=== PATIENT | male | born 1945 | race Caucasian/White ===

== ENCOUNTER → 2022-12-11 | Outpatient (CLI) | payer OTHER ==
[~2022-12-11] MED LIST: ASPI-1443 PO; CLOP75TA32 PO; FURO20TA4 PO; METO-408 PO
== END | disposition home or self-care (01) ==
LOC: SHCH 08:08
PROVIDERS: ATTEND Student in an Organized Health Care Education/Training Program
DX: I50.9 Heart failure, unspecified (principal)
CPT/HCPCS: 93306

== ENCOUNTER → 2023-01-27 | Outpatient (CLI) | payer OTHER ==
[~2023-01-27] MED LIST changes: +IOHEXOL 350 MG/ML 100ML INFUS..BTL IV ONE; +METOPROLOL TARTRATE 1 MG/ML 5ML VIAL IV ONE
== END | disposition home or self-care (01) ==
LOC: RAH 10:00
PROVIDERS: ATTEND Student in an Organized Health Care Education/Training Program
DX: I51.7 Cardiomegaly (principal); M47.815 Spondylosis without myelopathy or radiculopathy, thoracolumbar region; Z95.1 Presence of aortocoronary bypass graft
CPT/HCPCS: 75574; J3490; Q9967

== ENCOUNTER 2023-02-28 18:02 | Emergency (ER) | payer OTHER ==
[~2023-02-28] VITALS: Ht 177.8 cm; Wt 98.9 kg
[~2023-02-28 18:02] MED LIST changes: -IOHEXOL 350 MG/ML 100ML INFUS..BTL IV ONE; -METOPROLOL TARTRATE 1 MG/ML 5ML VIAL IV ONE
[2023-02-28 19:09] LABS: CREATININE 1.4 mg/dL (0.5-1.5); POTASSIUM 3.5 mmol/L (3.5-5.1)
[2023-02-28 19:10] LABS: BASOPHILS # (AUTO) 0.02 K/uL (0.00-0.20); BASOPHILS % (AUTO) 0.3 % (0.0-5.0); EOSINOPHILS # (AUTO) 0.15 K/uL (0.00-0.70); EOSINOPHILS % (AUTO) 2.2 % (0.0-8.0); HEMATOCRIT 44.3 % (42-54); IMMATURE GRANULOCYTE ABSOLUTE 0.02 K/uL (0-1); LYMPHOCYTES # (AUTO) 1.4 K/uL (1.0-4.8); LYMPHOCYTES % (AUTO) 21.2 % (21.0-51.0); MEAN CORPUSCULAR HEMOGLOBIN 30.5 pg (27.0-33.0); MEAN CORPUSCULAR HGB CONC 32.7 g/dL (32.0-36.0); MEAN CORPUSCULAR VOLUME 93.1 fL (79-99); MONOCYTES # (AUTO) 0.2 K/uL (0.1-1.0); MONOCYTES % (AUTO) 3.4 % (3.0-13.0); NEUTROPHILS # (AUTO) 4.9 K/uL (1.8-7.7); NEUTROPHILS % (AUTO) 72.6 % (40.0-77.0); PLATELET COUNT (AUTO) 216 K/uL (130-400); RED BLOOD CELL COUNT(AUTO) 4.76 MIL/uL (4.50-6.20); RED CELL DISTRIBUTION WIDTH 14.4 % (11.0-15.5); WHITE BLOOD COUNT (AUTO) 6.8 K/uL (4.8-10.8)
[2023-02-28 19:18] VITALS: BP 133/69; O2SAT 97
[2023-02-28 19:18] LABS: ALBUMIN 3.3 g/dL (3.5-5.0); BILIRUBIN,TOTAL 0.5 mg/dL (0.2-1.0)
[2023-02-28] MEDS ORDERED: ALBUTEROL 0.083% 2.5 MG/3 ML INH IH ONE ×2 (20:28→20:30)
[2023-02-28 20:31] VITALS: PULSE 65; RESP 18
[2023-02-28] MEDS ORDERED: ALBU90AE2 IH (21:42)
== END 2023-02-28 21:55 | disposition home or self-care (01) ==
LOC: EDH 18:02
DX: J45.909 Unspecified asthma, uncomplicated (principal); I25.10 Atherosclerotic heart disease of native coronary artery without angina pectoris; I10 Essential (primary) hypertension; E78.00 Pure hypercholesterolemia, unspecified; Z79.82 Long term (current) use of aspirin; Z79.899 Other long term (current) drug therapy; Z95.1 Presence of aortocoronary bypass graft; Z98.890 Other specified postprocedural states
CPT/HCPCS: 36415; 71045; 80053; 83880; 84484; 85025; 93005; 94640

== ENCOUNTER 2023-03-08 11:18 | Emergency (ER) | payer OTHER ==
[~2023-03-08] VITALS: Ht 177.8 cm; Wt 98.1 kg
[~2023-03-08 11:18] MED LIST changes: +ALBU90AE2 IH
[2023-03-08 11:52] LABS: BASOPHILS # (AUTO) 0.03 K/uL (0.00-0.20); BASOPHILS % (AUTO) 0.5 % (0.0-5.0); EOSINOPHILS # (AUTO) 0.19 K/uL (0.00-0.70); HEMATOCRIT 43.1 % (42-54); IMMATURE GRANULOCYTE ABSOLUTE 0.01 K/uL (0-1); LYMPHOCYTES # (AUTO) 1.4 K/uL (1.0-4.8); LYMPHOCYTES % (AUTO) 22.4 % (21.0-51.0); MEAN CORPUSCULAR HEMOGLOBIN 30.6 pg (27.0-33.0); MEAN CORPUSCULAR VOLUME 95.6 fL (79-99); MONOCYTES # (AUTO) 0.5 K/uL (0.1-1.0); MONOCYTES % (AUTO) 7.2 % (3.0-13.0); NEUTROPHILS # (AUTO) 4.2 K/uL (1.8-7.7); NEUTROPHILS % (AUTO) 66.7 % (40.0-77.0); PLATELET COUNT (AUTO) 186 K/uL (130-400); RED BLOOD CELL COUNT(AUTO) 4.51 MIL/uL (4.50-6.20); RED CELL DISTRIBUTION WIDTH 14.5 % (11.0-15.5); WHITE BLOOD COUNT (AUTO) 6.2 K/uL (4.8-10.8)
[2023-03-08 12:04] LABS: CREATININE 1.3 mg/dL (0.5-1.5); POTASSIUM 3.8 mmol/L (3.5-5.1)
[2023-03-08] MEDS ORDERED: METOCLOPRAMIDE 10 MG/2 ML VIAL IVP ONE (13:30)
[2023-03-08] MEDS ORDERED: LIDOCAINE HCL 2% VISCOUS 15 ML UDCUP PO ONE (13:30)
[2023-03-08] MEDS ORDERED: DICYCLOMINE HCL 10 MG/5 ML ML PO ONE (13:30)
[2023-03-08] MEDS ORDERED: FAMOTIDINE 20MG TAB PO ONE (13:30)
[2023-03-08] MEDS ORDERED: MAG/ALUM/SIMETH 30 ML UDCUP PO ONE (13:30)
[2023-03-08 13:37] LABS: ADD UA MICROSCOPIC YES; APPEARANCE,URINE CLEAR (CLEAR); BILIRUBIN,URINE NEGATIVE (NEGATIVE); COLOR,URINE LIGHT-YELLOW (YELLOW); GLUCOSE, URINE (UA) NEGATIVE (NEGATIVE); KETONES,URINE NEGATIVE (NEGATIVE); LEUKOCYTE ESTERASE ,URINE 75 Leu/uL (NEGATIVE); NITRATE,URINE NEGATIVE (NEGATIVE); OCCULT BLOOD,URINE NEGATIVE (NEGATIVE); PROTEIN,URINE NEGATIVE (NEGATIVE); UROBILINOGEN,URINE 0.2 mg/dL (0.2-1.0)
[2023-03-08 13:39] LABS: MUCUS,URINE RARE LPF (None Seen); RBC,URINE 0-1 /HPF (0-1)
[2023-03-08 14:42] VITALS: BP 115/73; PULSE 63; RESP 16; O2SAT 98
[2023-03-08] MEDS ORDERED: CEPH500B PO (14:43)
[2023-03-08] MEDS ORDERED: CEFTRIAXONE 2GM VIAL IVPB ONE (15:00)
[2023-03-11] MEDS ORDERED: POTA-200 PO (11:34)
[2023-03-11] MEDS ORDERED: FOLI1 PO (11:34)
[2023-03-11] MEDS ORDERED: THIA100T78 PO (11:34)
[2023-03-11] MEDS ORDERED: TADA20TA43 PO (11:34)
[2023-03-11] MEDS ORDERED: ROSU40TA21 PO (11:34)
== END 2023-03-08 15:22 | disposition home or self-care (01) ==
LOC: EDH 11:18
DX: N39.0 Urinary tract infection, site not specified (principal); E78.00 Pure hypercholesterolemia, unspecified; I10 Essential (primary) hypertension; I25.2 Old myocardial infarction; Z79.02 Long term (current) use of antithrombotics/antiplatelets; Z79.82 Long term (current) use of aspirin; Z79.899 Other long term (current) drug therapy; Z87.891 Personal history of nicotine dependence; Z95.1 Presence of aortocoronary bypass graft
CPT/HCPCS: 99285; 96365; 71045; 96375; 84484; 80048; 85025; 87088; 81001; 36415; 74018; 93005; J0696; J2765

== ENCOUNTER 2023-03-14 08:10 | Observation (INO) | payer OTHER ==
[2023-03-10 15:08] LABS: BASOPHILS # (AUTO) 0.02 K/uL (0.00-0.20); BASOPHILS % (AUTO) 0.3 % (0.0-5.0); EOSINOPHILS % (AUTO) 2.9 % (0.0-8.0); IMMATURE GRANULOCYTE ABSOLUTE 0.02 K/uL (0-1); LYMPHOCYTES # (AUTO) 1.3 K/uL (1.0-4.8); LYMPHOCYTES % (AUTO) 18.7 % (21.0-51.0); MEAN CORPUSCULAR HEMOGLOBIN 30.6 pg (27.0-33.0); MEAN CORPUSCULAR HGB CONC 32.2 g/dL (32.0-36.0); MEAN CORPUSCULAR VOLUME 94.9 fL (79-99); MONOCYTES # (AUTO) 0.5 K/uL (0.1-1.0); MONOCYTES % (AUTO) 6.5 % (3.0-13.0); NEUTROPHILS % (AUTO) 71.3 % (40.0-77.0); PLATELET COUNT (AUTO) 186 K/uL (130-400); RED BLOOD CELL COUNT(AUTO) 4.74 MIL/uL (4.50-6.20); RED CELL DISTRIBUTION WIDTH 14.3 % (11.0-15.5)
[2023-03-10 15:14] LABS: APPEARANCE,URINE CLEAR (CLEAR); BILIRUBIN,URINE NEGATIVE (NEGATIVE); COLOR,URINE COLORLESS (YELLOW); GLUCOSE, URINE (UA) NEGATIVE (NEGATIVE); KETONES,URINE NEGATIVE (NEGATIVE); LEUKOCYTE ESTERASE ,URINE 250 Leu/uL (NEGATIVE); NITRATE,URINE NEGATIVE (NEGATIVE); OCCULT BLOOD,URINE NEGATIVE (NEGATIVE); PROTEIN,URINE NEGATIVE (NEGATIVE); UROBILINOGEN,URINE 0.2 mg/dL (0.2-1.0)
[2023-03-10 15:16] LABS: CREATININE 1.4 mg/dL (0.5-1.5); POTASSIUM 3.7 mmol/L (3.5-5.1)
[2023-03-10 15:17] LABS: ADD UA MICROSCOPIC YES
[2023-03-10 15:18] LABS: INR 0.99 (0.85-1.15); PROTHROMBIN TIME 11.5 SEC (9.6-11.6)
[2023-03-10 15:20] LABS: PARTIAL THROMBOPLASTIN TIME 28.9 SEC (26.3-35.5)
[2023-03-10 15:24] VITALS: BP 129/74; PULSE 79; RESP 19
[2023-03-10 15:30] LABS: MUCUS,URINE RARE LPF (None Seen); RBC,URINE 0-1 /HPF (0-1); SQUAMOUS EPITHELIAL CELL,UR RARE /HPF (0-2)
[2023-03-10 15:39] LABS: B-TYPE NATRIURETIC PEPTIDE 105 pg/mL (0-100)
[2023-03-14] VITALS (11 sets, daily range): BP systolic 104–143; BP diastolic 61–77; PULSE 63–74; RESP 18–20; O2SAT 100
[~2023-03-14] VITALS: Ht 177.8 cm; Wt 99.8 kg
[~2023-03-14 08:10] MED LIST changes: -ALBU90AE2 IH; +CEPH500B PO; +FOLI1 PO; +POTA-200 PO; +ROSU40TA21 PO; +TADA20TA43 PO; +THIA100T78 PO
[2023-03-14] MEDS ORDERED: 0.9%NACL 1000ML 1,000 ML IV ONE (09:13)
[2023-03-14] MEDS ORDERED: IOHEXOL 350 MG/ML 100ML INFUS..BTL IV ONE ×4 (11:24→14:02)
[2023-03-14] MEDS ORDERED: LIDOCAINE HCL 400MG/20ML VIAL ONE (11:24)
[2023-03-14] MEDS ORDERED: HEPARIN 10,000 UNIT/10ML (1,000 UNIT/ML) VIAL ONE (11:24)
[2023-03-14] MEDS ORDERED: NITROGLYCERIN 50MG VIAL ONE (11:24)
[2023-03-14] MEDS ORDERED: FENTANYL CITRATE PF 50 MCG/1 ML 2ML VIAL ONE ×2 (11:24→13:32)
[2023-03-14] MEDS ORDERED: MIDAZOLAM HCL 1 MG/ML 2ML VIAL ONE ×3 (11:24→13:33)
[2023-03-14] MEDS ORDERED: IOHEXOL-350 50ML VIAL IV ONE (12:11)
[2023-03-14] MEDS ORDERED: CLOPIDOGREL 300MG TAB ONE (12:39)
[2023-03-14] MEDS ORDERED: ASPIRIN 81MG CHEW TAB ONE (12:39)
[2023-03-14] MEDS ORDERED: ATROPINE 1MG SYG IVP ONE (13:54)
[2023-03-14] MEDS ORDERED: NICARDIPINE 25MG INJ IV ONE (13:54)
[2023-03-14] MEDS ORDERED: DEXTROSE 50%-WATER 50 ML DISP.SYRIN IV PRN ×2 (14:30)
[2023-03-14] MEDS ORDERED: FUROSEMIDE 40MG VIAL IVP SCH (14:30)
[2023-03-14] MEDS ORDERED: GLUCAGON 1MG KIT 1 MG ML IM PRN ×2 (14:30)
[2023-03-14] MEDS ORDERED: ACETAMINOPHEN 325 MG TAB PO PRN (15:30)
[2023-03-14] MEDS: CEPHALEXIN 500 MG CAPSULE PO SCH ×2 (17:28→20:46)
[2023-03-14] MEDS ORDERED: NON-FORMULARY MEDICATION 1 EACH (Rosuvastatin Calcium 40 MG) PO SCH (21:00)
[2023-03-14] MEDS ORDERED: ATORVASTATIN 40 MG TABLET PO SCH (21:00)
[2023-03-15] VITALS (8 sets, daily range): BP systolic 93–117; BP diastolic 65–74; PULSE 70–88; RESP 15–18; O2SAT 100
[2023-03-15 04:41] LABS: CREATININE 1.7 mg/dL (0.5-1.5)
[2023-03-15] MEDS ORDERED: 0.9%NACL 1000ML 1,000 ML IV STA (08:22)
[2023-03-15] MEDS ORDERED: METOPROLOL SUCCINATE 25 MG TAB.SR.24H PO SCH (09:00)
[2023-03-15] MEDS ORDERED: ASPIRIN 81MG CHEW TAB PO SCH (09:00)
[2023-03-15] MEDS ORDERED: ASPIRIN 81 MG EC TAB PO SCH (09:00)
[2023-03-15] MEDS ORDERED: FOLIC ACID 1 MG TABLET PO SCH (09:00)
[2023-03-15] MEDS ORDERED: CLOPIDOGREL 75MG TAB PO SCH ×2 (09:00)
[2023-03-15] MEDS ORDERED: CEPHALEXIN 500 MG CAPSULE PO SCH (09:00)
[2023-03-15 13:15] LABS: CREATININE 1.6 mg/dL (0.5-1.5)
== END 2023-03-15 15:30 | disposition home or self-care (01) ==
LOC: DAH 08:10 → DAHIP 08:11 → DAH 08:11 → 2AH 15:03
PROVIDERS: ADMIT Student in an Organized Health Care Education/Training Program; ATTEND Student in an Organized Health Care Education/Training Program
DX: I25.110 Atherosclerotic heart disease of native coronary artery with unstable angina pectoris (principal); I21.02 ST elevation (STEMI) myocardial infarction involving left anterior descending coronary artery; I11.0 Hypertensive heart disease with heart failure; I50.23 Acute on chronic systolic (congestive) heart failure; I25.2 Old myocardial infarction; E78.5 Hyperlipidemia, unspecified; Z79.82 Long term (current) use of aspirin; Z95.1 Presence of aortocoronary bypass graft; Z79.899 Other long term (current) drug therapy
CPT/HCPCS: 80048 ×3; 83880; 85025; 85610; 85730; 81001; 36415 ×2; 93005; 93459; 96374; 82948; 71045; C1769 ×6; C1887 ×3; C1894 ×2; C1725 ×3; C1874 ×3; C1760; Q9965 ×5; G0378 ×24; J3010 ×2; J3490 ×3; J7030; J1644 ×3; J2250 ×3; J1940; Q9967 ×5; A4215; A4223 ×3; A4222; A4221; A4663; A4216; A4606; C9600; C9601; 99156; 99157; J0461

== ENCOUNTER → 2023-11-22 | Outpatient (CLI) | payer OTHER ==
[~2023-11-22] MED LIST changes: +BUDE10.2 IH; -CEPH500B PO; +OSEL75 PO; -ROSU40TA21 PO; +ROSU40TA70 PO; -TADA20TA43 PO
== END | disposition home or self-care (01) ==
LOC: LAB 12:00
PROVIDERS: ATTEND Student in an Organized Health Care Education/Training Program
DX: D75.81 Myelofibrosis (principal)
CPT/HCPCS: 36415; 82784

== ENCOUNTER → 2024-03-21 | Outpatient (CLI) | payer OTHER ==
[~2024-03-21] MED LIST changes: -ROSU40TA70 PO; +ROSU40TA88 PO
--- NOTE | 2024-03-21 10:30 | HMCIMG ---
SNIFF TEST, CHEST FLUOROSCOPY REASON: INJURY OF DIAPHRAGM. COMPARISON: None TECHNIQUE: Fluoroscopic guided sniff test was performed. FINDINGS: Normal diaphragmatic movement are noted with inspiration and expiration best on the right. Cine images were obtained. IMPRESSION: Normal diaphragmatic movement are noted with inspiration and expiration.
== END | disposition home or self-care (01) ==
LOC: RAH 09:28
PROVIDERS: ATTEND Internal Medicine Pulmonary Disease
DX: S27.80 Injury of diaphragm (principal); X58.XXXD Exposure to other specified factors, subsequent encounter
CPT/HCPCS: 76000

== ENCOUNTER → 2024-07-24 | Outpatient (CLI) | payer OTHER | END | disposition home or self-care (01) | LOC: SHCH 10:42 | PROVIDERS: ATTEND Student in an Organized Health Care Education/Training Program | DX: R06.02 Shortness of breath (principal) | CPT/HCPCS: 93306 ==

== ENCOUNTER → 2024-08-03 | Outpatient (CLI) | payer OTHER ==
--- NOTE | 2024-08-03 14:43 | HMCIMG ---
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 PARAMETERS: Noncontrast multisequence multiplanar imaging of the cervical spine. FINDINGS: Lordosis is maintained. The cranial-cervical junction, atlanto-dens interval and position of the cerebellar tonsils are within normal limits. The visualized brain stem and spinal cord appear normal in signal. C2-3: Moderate left and nominal right facet disease as well as mild left uncovertebral joint arthrosis contributing to moderate to severe left neuroforaminal narrowing. No evidence for disc displacement or central canal stenosis. C3-4: Moderate slightly hypertrophic left and mild right facet disease contributing to low-grade (1-2 mm) anterolisthesis of C3 upon C4 and moderate to severe left neuroforaminal narrowing without any significant disc displacement or central canal stenosis. C4-5: Moderate hypertrophic left and mild to moderate non-hypertrophic right facet disease and mild bilateral uncovertebral joint arthrosis contributing to moderate to severe left greater than right neural foraminal narrowing without any significant disc displacement or central canal stenosis. C5-6: Mild to moderate right and mild left facet disease and mild left uncovertebral joint arthrosis contributing to mild to moderate left neuroforaminal narrowing without any significant disc displacement or central canal stenosis. C6-7: Mild to moderate bilateral facet disease, moderate disc height loss, and mild bilateral uncovertebral joint arthrosis contributing to moderate left and mild to moderate right neuroforaminal narrowing without any significant central canal stenosis. C7-T1: Moderate hypertrophic right and mild on hypertrophic left facet disease contributing to low-grade (2 mm) anterolisthesis of C7 upon T1. The pre- and paraspinous soft tissues appear unremarkable. ANCILLARY FINDINGS: None IMPRESSION: 1. Moderate to severe left neuroforaminal narrowing at the C2-3 and C3-4 levels, moderate to severe left greater than right neuroforaminal narrowing at the C4-5 level, mild to moderate left neuroforaminal narrowing at the C5-6 level, and moderate left and mild to moderate right neuroforaminal narrowing at the C6-7 level without any significant disc displacement or central canal stenosis. 2. Level by level analysis, additional minor degenerative changes, and pertinent negatives as reported.
== END | disposition home or self-care (01) ==
LOC: RAH 13:40
PROVIDERS: ATTEND Family Medicine
DX: M48.02 Spinal stenosis, cervical region (principal); M43.13 Spondylolisthesis, cervicothoracic region; M50.10 Cervical disc disorder with radiculopathy, unspecified cervical region; M47.813 Spondylosis without myelopathy or radiculopathy, cervicothoracic region
CPT/HCPCS: 72141